=== PATIENT | female | born 1990 | race Caucasian/White ===

== ENCOUNTER 2018-08-20 02:18 | Emergency (ER) | payer SELFPAY ==
[~2018-08-20] VITALS: Ht 157.5 cm; Wt 60.3 kg
[2018-08-20 02:19] VITALS: Ht 157.5 cm; Wt 60.3 kg
[2018-08-20 03:01] LABS: BASOPHIL % 0 % (0-2); PLATELET COUNT 230 x10^3mcL (130-400); RED CELL DISTRIBUTION WIDTH 12.9 % (11.5-14.5)
[2018-08-20 03:06] LABS: CALCIUM 8.2 mg/dL (8.5-10.1); CARBON DIOXIDE 26.5 mmol/L (21-32); CHLORIDE SERUM 102 mmol/L (98-107); CREATININE SERUM 0.8 mg/dL (0.6-1.0); GFR1 > 60 mL/min; GLUCOSE SERUM 114 mg/dL (74-106); POTASSIUM SERUM 3.4 mmol/L (3.5-5.1); SODIUM SERUM 139 mmol/L (136-145)
[2018-08-20 03:11] LABS: ALBUMIN 3.6 g/dL (3.4-5.0); ALKALINE PHOSPHATASE 40 U/L (46-116); ALT/SGPT 15 U/L (14-59); AST/SGOT 17 U/L (15-37); BILIRUBIN TOTAL 0.6 mg/dL (0.20-1.00); LIPASE 85 IU/L (73-393); TOTAL PROTEIN, SERUM 7.1 g/dL (6.4-8.2)
[2018-08-20 06:08] LABS: MAGNESIUM 1.6 mg/dL (1.8-2.4); PHOSPHOROUS 3.6 mg/dL (2.5-4.9)
[2018-08-20 06:10] LABS: CHOLESTEROL/HDL RATIO 2.6
[2018-08-20 06:13] LABS: FREE T4 0.96 ng/dL (0.76-1.46); FREE THYROXINE INDEX 2.7 ug/dL (1.4-4.5); T4(THYROXINE) 7.7 ug/dL (4.7-13.3)
[2018-08-20 06:14] LABS: T3 TOTAL 0.71 ng/mL
[2018-08-20 07:08] VITALS: BP 85/55
== END 2018-08-20 07:08 | disposition left against medical advice (07) ==
LOC: ED 02:18 → MU 05:28 → ED 05:28
PROVIDERS: Emergency Medicine; Family Medicine
DX: N20.0 Calculus of kidney (principal); K59.00 Constipation, unspecified; R10.32 Left lower quadrant pain; R10.12 Left upper quadrant pain; Z88.1 Allergy status to other antibiotic agents
CPT/HCPCS: 83880; 84439; J1885; J2270; J2405; J3010; J7030; Q0092